=== PATIENT | female | born 1940 | race Caucasian/White ===

== ENCOUNTER 2017-01-06 05:15 | Day surgery (SDC) | payer MEDICARE ==
[2017-01-05 12:29] LABS: BASOPHILS 0.3 % (0.0-2.0); EOSINOPHILS 6.7 % (0-7); HEMATOCRIT 29.1 % (36.0-48.0); HEMOGLOBIN 8.9 g/dL (12-16); IMMATURE GRANULOCYTES 0.3 % (0-5); LYMPHOCYTES 9.7 % (15-50); MCH 28.3 pg (26.0-34.0); MCHC 30.6 g/dL (31.0-37.0); MCV 92.7 fL (80.0-100.0); MEAN PLATELET VOLUME 9.4 fL (7.4-10.4); MONOCYTES 7.9 % (2-11); NEUTROPHILS 75.1 % (40-80); PLATELET COUNT 241 10x3/uL (130-400); RBC 3.14 10x6/uL (4.00-5.40); RDW 16.3 % (11.5-14.5); WBC 11.8 10x3/uL (4.8-10.8)
[2017-01-05 13:06] LABS: ANION GAP 14.7 mmol/L (8-16); CALCIUM 8.4 mg/dL (8.5-10.1); CARBON DIOXIDE 26.3 mmol/L (21.0-32.0)
[~2017-01-06] VITALS: Ht 167.6 cm; Wt 83.9 kg
[~2017-01-06 05:15] MED LIST: COZAAR50 MG PO; GABAPENTIN100 MG PO; GLUCOPHAGE500 MG PO; KLOR-CON 1010 MEQ PO; LIPITOR10 MG PO; METHOTREXATE2.5 MG PO; OMEPRAZOLE DR 20 MG; PREDNISONE10 MG PO; SULFADIAZINE500 MG PO; ULTRAM50 MG PO; VITAMIN D2000 UNIT PO; VITAMIN E1000 UNI1 PO
[2017-01-06 05:45] VITALS: BP 168/87; Ht 167.6 cm; Wt 83.9 kg
--- NOTE | 2017-01-06 09:43 | NUR ---
0943--IV DC'D, PT UP TO DRESS AT THIS TIME. JAYJAY FLORES
--- NOTE | 2017-01-06 10:11 | NUR ---
1010--DISCHARGE INSTRUCTIONS GIVEN, PT VERBALIZES UNDERSTANDING. PT OFF UNIT VIA WILY. JAYJAY FLORES
--- NOTE | 2017-01-13 08:50 | OP ---
PATIENT NAME: ALLY CORDON MEDICAL RECORD: [id number] :36 LOCATION:D.OPS ADMISSION DATE: SURGEON: ONEL SELLERS DPM DATE OF OPERATION: 01/06/2017 PREOPERATIVE DIAGNOSES: 1. Hallux abductovalgus, right foot. 2. Instability, right first met cuneiform joint. 3. Hammertoe, right second digit. POSTOPERATIVE DIAGNOSES: 1. Hallux abductovalgus, right foot. 2. Instability, right first met cuneiform joint. 3. Hammertoe, right second digit. PROCEDURES: 1. Irvin bunionectomy, right foot. 2. First met cuneiform joint fusion, right foot. 3. PIPJ fusion, right second digit. ANESTHESIA: Preoperative popliteal block per the anesthesia department as well as general anesthesia as well as infiltration of 10 cc of lidocaine and Marcaine plain along the saphenous nerve as it courses down by the ankle. HEMOSTASIS: Right thigh tourniquet at 350 mmHg. PREOPERATIVE DETAILS: The patient was taken to the OR, placed on the operating table in a supine position as followed by induction of general anesthesia and infiltration of local anesthetic. The right extremity was then prepped and draped in usual aseptic technique, followed by exsanguination of extremity and inflation of tourniquet. PROCEDURE NUMBER ONE: Irvin bunionectomy, right foot. A 15-blade was used to create an incision over the dorsal aspect of the first ray extending down to the base of proximal phalanx of the hallux and proximal to the medial cuneiform. The incision was deepened down through subcutaneous tissue to the first MPJ where an inverted L capsulotomy was performed. The medial capsular flap was reflected and the head of the first metatarsal was delivered. A sagittal saw was used to resect the medial eminence. Attention was directed to the first interspace where a lateral release was performed. This concludes the Irvin bunionectomy. PROCEDURE NUMBER TWO: First met cuneiform joint fusion, right foot. The incision as described in #1 was carried proximal to the dorsal aspect of the medial cuneiform. Dissection was carried down through subcutaneous tissue being sure to avoid all vital structures. A linear periosteal incision was made in the dorsal aspect of the first met cuneiform joint was delivered. Sagittal saw was used to resect the joint. Temporary fixation was placed, a 5-hole plate with 1 hole being a compression screw was placed on the fusion site with excellent rigid internal fixation. C-arm was used to verify good alignment as well as placement of the hardware. The wound was flushed. The capsule was closed with 2-0 Vicryl as well as the periosteum. The subcutaneous tissue was repaired with 4-0 Rapide and the skin was closed with 4-0 Rapide in a subcuticular technique followed by Dermabond. OPERATIVE REPORT [id number] ALLY CORDON PROCEDURE NUMBER 3: PIPJ fusion, right second digit. Two semi-elliptical incisions were made over the dorsal aspect of the right second PIPJ. The skin wedge was removed exposing the extensor longus tendon, which was transected in transverse fashion. The head of the proximal phalanx and the base of middle phalanx were then delivered and resected with a sagittal saw. A 2.7 drill was then drilled in the proximal as well as middle phalanx and the bone graft was placed with the capital fragment on top of the bone graft providing excellent alignment as well as fixation. The tendon was reapproximated with 4-0 Rapide, as well as the skin was closed with 4-0 Rapide in simple interrupted technique followed by Dermabond, Adaptic, 4 x 4 and Conform were used to dress the wound followed by application of a modified Segovia compression dressing. Tourniquet was deflated. POSTOPERATIVE DETAILS: The patient tolerated the procedure well and left the OR with vital signs stable and vascular status at preoperative levels. The patient was transferred to recovery per anesthesia in stable condition. TRANSINT:[id number] Voice Confirmation ID: [id number] DOCUMENT ID: [id number] ONEL SELLERS DPM at 0850 CC: [id number] DICTATION DATE: 01/06/17817 [employer] INVESTIGATOR: 01/06/1759 [facility] 01/06/[address] [address]
== END 2017-01-06 10:10 | disposition home or self-care (01) ==
LOC: D.OPS 05:15 → D.PAN 07:00 → D.OPS 10:10
PROVIDERS: Anesthesiology
DX: M20.11 Hallux valgus (acquired), right foot (principal); M25.374 Other instability, right foot; M20.41 Other hammer toe(s) (acquired), right foot